=== PATIENT | female | born 1960 | race Caucasian/White ===

== ENCOUNTER → 2016-09-09 | Outpatient (CLI) | payer OTHER | LOC: MW.CHOBGYN 11:52 | PROVIDERS: ATTEND Nurse Practitioner Women's Health | DX: E03.9 Hypothyroidism, unspecified (principal) | CPT/HCPCS: 36415; 84439; 84443 ==

== ENCOUNTER 2019-06-04 13:05 | Emergency (ER) | payer OTHER ==
--- NOTE | 2019-06-04 14:05 | CR ---
Chest: Portable view of the chest was obtained. Comparison: Prior chest x-ray of 10/18/15. Heart size is normal. Tortuous thoracic aorta is seen. Sternotomy is noted. Prosthetic heart valve is noted. Lungs are clear with no acute parenchymal change. Bony structures are grossly intact. Impression: 1. Nothing acute is appreciated on frontal chest x-ray. Diagnostic code #1 Study was dictated in [place] Standard Time
[2019-06-04 14:12] LABS: BLOOD UREA NITROGEN,BUN 20 mg/dL (7.0-18.0); CARBON DIOXIDE,CO2 25.9 mmol/L (21.0-32.0); CHLORIDE,CL 104 mmol/L (98-107); GLUCOSE RANDOM 99 mg/dL (74-106); POTASSIUM,K 3.7 mmol/L (3.5-5.1); SODIUM,NA 142 mmol/L (136-145)
--- NOTE | 2019-06-04 16:08 | EDM.PDOC ---
ED [facility] GENERAL MEDICAL PROBLEM - General Chief Complaint: Chest Pain Stated Complaint: CHEST PAIN Time Seen by Provider: 06/04/19 13:35 Source of Information: Reports: Patient History Limitations: Reports: No Limitations - History of Present Illness INITIAL COMMENTS - FREE TEXT/NARRATIVE: Patient 58-year-old female with past medical history of thyroid dysfunction as well as mitral valve prolapse presenting with a chief complaint of chest pressure. Symptoms started around 1130. Patient states she first experiencing pressure in her mid scapular region of her back and then it began radiating around to the front of her chest. Patient did not have any associated shortness of breath, nausea, diaphoresis, palpitations. The symptoms not radiate anywhere else to her arm or jaw. Symptoms resolved spontaneously after 30 minutes. Patient was not exerting herself when the symptom started. Patient has not had any lower extremity swelling or calf pain. No history of DVT or PE. No recent hospitalization or recent long travel. No prior history of similar symptoms. In addition to that documented in the HPI above, the additional ROS was obtained : Constitutional: Denies fevers or chills Eyes: Denies vision changes ENMT: Denies sore throat CV: Denies chest pain Resp: Denies SOB GI: Denies vomiting or diarrhea : Denies painful urination MSK: Denies recent trauma Skin: Denies new rashes Neuro: Denies new numbness or tingling or weakness Endocrine: Denies unexpected weight loss Heme: Denies bleeding disorders I have reviewed the triage vital signs Const: Well nourished, well developed, appears stated age Eyes: PERRL, no conjunctival injection HENT: NCAT, Neck supple without meningismus CV: RRR, Warm, well-perfused extremities RESP: CTAB, Unlabored respiratory effort GI: soft, non-tender, non-distended, no masses MSK: No gross deformities appreciated Skin: Warm, dry. No rashes Neuro: Alert, gold leaf printer II-XII grossly intact. Sensation and motor function of extremities grossly intact. Psych: Appropriate mood and affect Assessmant and plan 58-year-old female presenting with chief complaint of chest discomfort which is resolved prior to arrival in the emergency department. Patient had serial EKG and troponin done which are both within normal limits. Patient has no evidence of PE and has no high risk features for pulmonary embolism. Patient's heart score is a 2 and patient will be discharged home with outpatient follow-up. Patient given strict return precautions all questions addressed and answered. Patient agrees with plan - Related Data Allergies Allergy/AdvReac Type Severity Reaction Status Date / Time Penicillins Allergy Hives Verified 06/04/19 13:19 Home Meds: Home Meds Amitriptyline [Elavil] 30 mg PO BEDTIME 07/19/14 [History] [place]/Cell/Lipas/Malt/Prt/Lac/in [Digestive Enzymes] 1 tab PO DAILY 07/19/14 [ History] Calcium Carbonate [Tums] 1 tab CHEW ASDIRECTED PRN 07/19/14 [History] Clindamycin HCl [Cleocin HCl] 1 tab PO ASDIRECTED PRN 07/19/14 [History] Cyanocobalamin (Vitamin B12) [Vitamin B12] 1 tab PO DAILY 07/19/14 [History] Fish Oil/Borage/Flax/Om3,6,9 1 [[place] 3-6-9 Complex Softgel] 1 tab PO DAILY 07/31 [History] Glucosam/Chond/Collagen/Hyalur [Glucosamine Chondroitin] 1 tab PO DAILY [History] Multivitamin [Multivitamins] 1 tab PO DAILY 07/19/14 [History] Past Medical History Cardiovascular History: Reports: Heart Valve Replacement - Infectious Disease History Infectious Disease History: Reports: Chicken Pox, Mumps Social & Family History - Tobacco Use Smoking Status *Q: Never Smoker Second Hand Smoke Exposure: No - Caffeine Use Caffeine Use: Reports: None - Recreational Drug Use Recreational Drug Use: No ED ROS GENERAL - Review of Systems Review Of Systems: See Below ED EXAM, GENERAL - Physical Exam Exam: See Below Course - Vital Signs Last Recorded V/S: Last Vital Signs Temp 36.1 C 06/04/19 13:21 Pulse 79 06/04/19 14:42 Resp 16 06/04/19 14:42 BP 113/70 06/04/19 14:42 Pulse Ox 97 06/04/19 14:42 - Orders/Labs/Meds Orders: Active Orders 24 hr Category Date Time Status EKG 12 Lead [EKG Documentation Completion] [RC] STAT Care 06/04/19 15:05 Active EKG Documentation Completion [RC] STAT Care 06/04/19 13:11 Active Labs: Laboratory Tests 06/04/19 06/04/19 06/04/19 Range/Units 13:19 13:19 15:16 WBC 6.46 (4.0-11.0) K/uL RBC 4.26 L (4.30-5.90) M/uL Hgb 13.1 (12.0-16.0) g/dL Hct 39.2 (36.0-46.0) % MCV 92.0 (80.0-98.0) fL MCH 30.8 (27.0-32.0) pg MCHC 33.4 (31.0-37.0) g/dL RDW Std Deviation 43.7 (28.0-62.0) fl RDW Coeff of Christine 13 (11.0-15.0) % Plt Count 225 (150-400) K/uL MPV 9.90 (7.40-12.00) fL Neut % (Auto) 65.1 (48.0-80.0) % Lymph % (Auto) 26.9 (16.0-40.0) % [place] % (Auto) 6.2 (0.0-15.0) % Eos % (Auto) 0.9 (0.0-7.0) % Baso % (Auto) 0.9 (0.0-1.5) % Neut # (Auto) 4.2 (1.4-5.7) K/uL Lymph # (Auto) 1.7 (0.6-2.4) K/uL [place] # (Auto) 0.4 (0.0-0.8) K/uL Eos # (Auto) 0.1 (0.0-0.7) K/uL Baso # (Auto) 0.1 (0.0-0.1) K/uL Nucleated RBC % 0.0 /100WBC Nucleated RBCs # 0 K/uL Sodium 142 (136-145) mmol/L Potassium 3.7 (3.5-5.1) mmol/L Chloride 104 (98-107) mmol/L Carbon Dioxide 25.9 (21.0-32.0) mmol/L BUN 20 H (7.0-18.0) mg/dL Creatinine 0.9 (0.6-1.0) mg/dL Est Cr Clr Drug Dosing 64.56 mL/min Estimated GFR (MDRD) > 60.0 ml/min Glucose 99 (74-106) mg/dL Calcium 9.5 (8.5-10.1) mg/dL Total Bilirubin 0.3 (0.2-1.0) mg/dL AST 20 (15-37) IU/L ALT 26 (14-63) IU/L Alkaline Phosphatase 54 (46-116) U/L Troponin I < 0.050 < 0.050 (0.000-0.056) ng/mL Total Protein 7.7 (6.4-8.2) g/dL Albumin 4.2 (3.4-5.0) g/dL Globulin 3.5 (2.6-4.0) g/dL Albumin/Globulin Ratio 1.2 (0.9-1.6) Departure - Departure Time of Disposition: 16:08 Disposition: Home, Self-Care 01 Clinical Impression: Atypical chest pain Instructions: Nonspecific Chest Pain, [id number] Referrals: Carla Oh MD [Primary Care Provider] - Forms: ED Department Discharge Additional Instructions: Simeon the following information is given to patients seen in the emergency department who are being discharged to home. This information is to outline your options for follow-up care. We provide all patients seen in our emergency department with a follow-up referral. The need for follow-up, as well as the timing and circumstances, are variable depending upon the specifics of your emergency department visit. If you don't have a primary care physician on staff, we will provide you with a referral. We always advise you to contact your personal physician following an emergency department visit to inform them of the circumstance of the visit and for follow-up with them and/or the need for any referrals to a consulting specialist. The emergency department will also refer you to a specialist when appropriate. This referral assures that you have the opportunity for follow-up care with a specialist. All of these measure are taken in an effort to provide you with optimal care, which includes your follow-up. Under all circumstances we always encourage you to contact your private physician who remains a resource for coordinating your care. When calling for follow-up care, please make the office aware that this follow-up is from your recent emergency room visit. If for any reason you are refused follow-up, please contact the [facility] Emergency Department at and asked to speak to the emergency department charge nurse. Sepsis Event Note - Evaluation Sepsis Screening Result: No Definite Risk - Focused Exam Vital Signs: Vital Signs Temp Pulse Resp BP Pulse Ox 06/04/19 14:42 79 16 113/70 97 06/04/19 13:21 36.1 C 89 16 128/78 99 Date Exam was Performed: 06/04/19 Time Exam was Performed: 16:05 - My Orders Last 24 Hours: My Active Orders 06/04/19 13:11 EKG Documentation Completion [RC] STAT 06/04/19 15:05 EKG 12 Lead [EKG Documentation Completion] [RC] STAT - Assessment/Plan Last 24 Hours: My Active Orders 06/04/19 13:11 EKG Documentation Completion [RC] STAT 06/04/19 15:05 EKG 12 Lead [EKG Documentation Completion] [RC] STAT
[2019-06-04 19:48] VITALS: BP 112/75; PULSE 71
== END 2019-06-04 16:57 | disposition home or self-care (01) ==
LOC: MW.ED 13:05
DX: R07.89 Other chest pain (principal); Z88.0 Allergy status to penicillin
CPT/HCPCS: 36415; 71045; 71045-26; 80053; 84484; 85025; 93005; 99283; 99285-25

== ENCOUNTER 2019-06-04 18:47 | Emergency (ER) | payer OTHER ==
--- NOTE | 2019-06-04 19:45 | EDM.PDOC ---
ED [facility] GENERAL MEDICAL PROBLEM - General Chief Complaint: Cardiovascular Problem Stated Complaint: RAPID HEARTBEAT Time Seen by Provider: 06/04/19 19:05 Source of Information: Reports: Patient - History of Present Illness INITIAL COMMENTS - FREE TEXT/NARRATIVE: The patient is a 58-year-old female with a history of a mitral valve replacement who presents to the ER for chest pressure and mainly palpitations. The patient was just seen at this facility and discharged about an hour ago for chest pain. She was considered a low risk with a heart score of 2. The patient states that she got home when she looked at her apple watch and notes that her heart rate was 145. She states that her heart was racing. She had a little bit of pain but mostly it was just palpitations. No syncope or near syncope, no fevers or chills, no coughing, no hemoptysis, no other acute complaints. - Related Data Allergies Allergy/AdvReac Type Severity Reaction Status Date / Time Penicillins Allergy Hives Verified 06/04/19 18:53 Home Meds: Home Meds Amitriptyline [Elavil] 30 mg PO BEDTIME 07/19/14 [History] Lyndsay/Cell/Lipas/Malt/Prt/Lac/in [Digestive Enzymes] 1 tab PO DAILY 07/19/14 [ History] Calcium Carbonate [Tums] 1 tab CHEW ASDIRECTED PRN 07/19/14 [History] Clindamycin HCl [Cleocin HCl] 1 tab PO ASDIRECTED PRN 07/19/14 [History] Cyanocobalamin (Vitamin B12) [Vitamin B12] 1 tab PO DAILY 07/19/14 [History] Fish Oil/Borage/Flax/Om3,6,9 1 [[place] 3-6-9 Complex Softgel] 1 tab PO DAILY 07/31 [History] Glucosam/Chond/Collagen/Hyalur [Glucosamine Chondroitin] 1 tab PO DAILY [History] Multivitamin [Multivitamins] 1 tab PO DAILY 07/19/14 [History] Past Medical History Cardiovascular History: Reports: Heart Valve Replacement - Infectious Disease History Infectious Disease History: Reports: Chicken Pox Social & Family History - Family History Family Medical History: Noncontributory - Tobacco Use Smoking Status *Q: Never Smoker Second Hand Smoke Exposure: No - Caffeine Use Caffeine Use: Reports: Coffee - Recreational Drug Use Recreational Drug Use: No ED ROS GENERAL - Review of Systems Review Of Systems: See Below Free Text/Narrative/Comment: Positive for transient chest pressure, positive for palpitations, negative for fevers, negative chills, negative hemoptysis, negative for syncope, negative for near syncope, all other Positives and pertinent negatives as per HPI. All other pertinent systems were reviewed and are negative ED EXAM, GENERAL - Physical Exam Exam: See Below Free Text/Narrative:: Constitutional: No acute distress, Non-toxic appearance HEENT.: Normocephalic, PERRL, EOMI, External ears are atraumatic, nares are patent without epistaxis Neck: Normal range of motion, Trachea Midline, No stridor Respiratory.: No respiratory distress, No tachypnea, Lungs Clear to Auscultation bilaterally without wheezes, rales, or rhonchi Cardiovascular.: Regular rate and Rhythm without murmurs, rubs, or gallops, good peripheral perfusion GI: Deferred Genital Urinary: Deferred Musculoskeletal: Good range of motion. All 4 extremities present and atraumatic , no edema Back: Full Range of Motion Skin: Warm, Dry, Color is ethnicity appropriate, No acute rash. Lymphatic: No lymphadenopathy noted Neurological: Alert, Awake and oriented x 3, No focal deficits noted appreciate , GCS 15 Psych: Affect, Judgement, mood normal Course - Vital Signs Text/Narrative:: I agree with Dr. Giordano assessment that this patient is a low risk per heart score, and I also am not concerned about other malignant cardiopulmonary pathology such as a pulmonary embolism, aortic dissection, myocarditis, endocarditis, pericardial effusion, etc. ECG The Repeat ECG was read and interpreted by me. There are p waves before every QRS with a ventricular rate of 60. The GA, QRS, and QT intervals are all normal. [place] is normal. ST segments are baseline and the T wave morphology is normal. Final interpretation is a normal Sinus rhythm and a normal ECG. During almost 2 hours of observation at her repeat visit in the ER she remained in a normal sinus rhythm with no dysrhythmias, ECG does not show any signs of Iapvl-[id number]-Vhkui, long QT syndrome, Brugada syndrome, etc. Patient is also making numerous other request such as checking her thyroid, she has leg cramps, etc. She is stable for discharge and outpatient follow-up. Last Recorded V/S: Last Vital Signs Temp 36.0 C 01/17/20 18:54 Pulse 79 06/04/19 20:22 Resp 16 06/04/19 20:22 BP 119/67 06/04/19 20:22 Pulse Ox 97 06/04/19 20:22 - Orders/Labs/Meds Orders: Active Orders 24 hr Category Date Time Status EKG Documentation Completion [RC] STAT Care 06/04/19 20:00 Active Labs: Laboratory Tests 06/04/19 Range/Units 19:08 Troponin I < 0.050 (0.000-0.056) ng/mL Departure - Departure Time of Disposition: 20:34 Disposition: Home, Self-Care 01 Clinical Impression: Palpitation Referrals: Carla Oh MD [Primary Care Provider] - Forms: ED Department Discharge Additional Instructions: Palpitations A palpitation is the feeling that your heartbeat is irregular. It may feel like your heart is fluttering or skipping a beat. It may also feel like your heart is beating faster than normal. This is usually not a serious problem, but in some cases you may need more medical tests. HOME CARE Avoid: ? Excessive caffeine in coffee, tea, soft drinks, diet pills, and energy drinks. GET HELP RIGHT AWAY IF: You have chest pain or worsening chest pain. You feel persistent shortness of breath. Your heart is racing and you pass out, it is racing and won't stop, or any other concerns The following information is given to patients seen in the emergency department who are being discharged to home. This information is to outline your options for follow-up care. We provide all patients seen in our emergency department with a follow-up referral. The need for follow-up, as well as the timing and circumstances, are variable depending upon the specifics of your emergency department visit. If you don't have a primary care physician on staff, we will provide you with a referral. We always advise you to contact your personal physician following an emergency department visit to inform them of the circumstance of the visit and for follow-up with them and/or the need for any referrals to a consulting specialist. The emergency department will also refer you to a specialist when appropriate. This referral assures that you have the opportunity for follow-up care with a specialist. All of these measure are taken in an effort to provide you with optimal care, which includes your follow-up. Under all circumstances we always encourage you to contact your private physician who remains a resource for coordinating your care. When calling for follow-up care, please make the office aware that this follow-up is from your recent emergency room visit. If for any reason you are refused follow-up, please contact the [facility] Emergency Department at and asked to speak to the emergency department charge nurse. Sepsis Event Note - Evaluation Sepsis Screening Result: No Definite Risk - Focused Exam Vital Signs: Vital Signs Temp Pulse Resp BP Pulse Ox 06/04/19 20:22 79 16 119/67 97 06/04/19 19:45 84 18 118/64 96 06/04/19 18:54 36.0 C 93 16 132/64 96 Date Exam was Performed: 06/04/19 Time Exam was Performed: 20:28 - My Orders Last 24 Hours: My Active Orders 06/04/19 20:00 EKG Documentation Completion [RC] STAT - Assessment/Plan Last 24 Hours: My Active Orders 06/04/19 20:00 EKG Documentation Completion [RC] STAT
[2019-06-04 21:00] VITALS: BP 128/76; PULSE 78
== END 2019-06-04 20:44 | disposition home or self-care (01) ==
LOC: MW.ED 18:47
DX: R00.2 Palpitations (principal); Z79.899 Other long term (current) drug therapy; Z88.0 Allergy status to penicillin
CPT/HCPCS: 36415; 84484; 93005; 99285-25

== ENCOUNTER 2020-05-27 20:58 | Emergency (ER) | payer OTHER ==
--- NOTE | 2020-05-27 21:05 | EDM.PDOC ---
ED HPI GENERAL MEDICAL PROBLEM - General Chief Complaint: ENT Problem Stated Complaint: POSSIBLE EAR INFECTION Time Seen by Provider: 05/27/20 21:01 Source of Information: Reports: Patient History Limitations: Reports: No Limitations - History of Present Illness INITIAL COMMENTS - FREE TEXT/NARRATIVE: HISTORY AND PHYSICAL: History of present illness: Patient is a 59-year-old female who presents to the emergency room with complaints of left ear pain. Patient states she has had this intermittent left dental/sinus/ear pain since around [place]. She did see her dentist due to this pain and he informed her there was no immediate concerns and to take Tylenol and ibuprofen at home. Over the past few days she has had pain that returned to the left ear and sinus area. She has been using Tylenol and ibuprofen with minimal relief. Patient denies any fever, chills, headache, change in vision, syncope or near syncope. She denies any ear drainage, pain with ocular movement, or sore throat. Denies any chest pain, back pain, shortness of breath or cough. Denies any GI or symptoms. Patient has been eating and drinking appropriately. Review of systems: As per history of present illness and below otherwise all systems reviewed and negative. Past medical history: As per history of present illness and as reviewed below otherwise noncontributory. Surgical history: As per history of present illness and as reviewed below otherwise noncontributory. Social history: See social history for further information Family history: As per history of present illness and as reviewed below otherwise noncontributory. Physical exam: General: Well developed and well nourished 59 year old female. Alert and orientated x 3. Nontoxic in appearance and in no acute distress. Vital signs are stable and have been reviewed by me. Nursing notes were reviewed. HEENT: Atraumatic, normocephalic, pupils equal and reactive bilaterally, negative for conjunctival pallor or scleral icterus, mucous membranes moist, TMs dull and pinkish bilaterally (no bulging), tenderness with palpation of the left frontal and maxillary sinus, throat clear, neck supple, no lymphadenopathy, nontender, trachea midline. No drooling or trismus noted. No meningeal signs. No hot potato voice noted. Lungs: Clear to auscultation, breath sounds equal bilaterally. Normal work of breathing, no accessory muscles used. Heart: S1S2, regular rate and rhythm without overt murmur Abdomen: Soft, nondistended, nontender. Skin: Intact, warm, dry. No lesions or rashes noted. Hematologic: No petechiae or purpra. Mucosa appropriate color and normal nail bed color and refill. Extremities: Atraumatic, moves all extremities per self without difficulty or deficits. Neurovascular unremarkable. Neuro: Awake, alert, oriented. Cranial nerves II through XII unremarkable. Cerebellum unremarkable. Motor and sensory unremarkable throughout. Exam nonfocal. Psychiatric: Mood and affect are appropriate. Normal thought process. Answering questions appropriately. Notes: I have talked with the patient about today's findings, in addition to providing specific details for plan of care. Reassessment at the time of disposition demonstrates that the patient is in no acute distress. The patient is stable for discharge, counseling was provided and we discussed in great detail signs and symptoms that would prompt them to return to the Emergency Department. Medication, follow up and supportive care measures were reviewed and discussed. Voices understanding and is agreeable to plan of care. Denies any further qu estions or concerns at this time. Diagnostics: None Therapeutics: Clindamycin, Tylenol #3 Prescription: Clindamycin, Tylenol #3 Impression: Sinusitis Plan: 1. Please take the medication as directed. 2. You can alternate Tylenol and ibuprofen as needed for pain management. Tylenol #3 for moderate to severe pain, this medication may cause drowsiness, so do not take while driving or needing to be functioning outside the house. 3. We encourage you to follow up with your primary care provider and/or recommended specialist in the next few days for re-evaluation and further care/management. 4. If your symptoms should worsen, new symptoms develop or any of the signs and symptoms we discussed should arise please return to the emergency room or call 911 (if needed). Definitive disposition and diagnosis as appropriate pending reevaluation and review of above. left ear Pain Score (Numeric/FACES): 3 - Related Data Allergies Allergy/AdvReac Type Severity Reaction Status Date / Time Penicillins Allergy Hives Verified 05/27/20 21:11 Home Meds: Home Meds Calcium Carbonate [Tums] 1 tab CHEW ASDIRECTED PRN 07/19/14 [History] Fish Oil/Borage/Flax/Om3,6,9 1 [[place] 3-6-9 Complex Softgel] 1 tab PO DAILY 07/19/14 [History] Multivitamin [Multivitamins] 1 tab PO DAILY 07/19/14 [History] clindamycin HCL [Cleocin HCl] 1 tab PO ASDIRECTED PRN 07/19/14 [History] Aspirin [Aspirin EC] 81 mg PO DAILY 05/27/20 [History] Evening [place] Oil 500 mg PO DAILY 05/27/20 [History] Thyroid,Pork [[place] Thyroid] 15 mg PO DAILY 05/27/20 [History] Past Medical History Cardiovascular History: Reports: Heart Valve Replacement - Infectious Disease History Infectious Disease History: Reports: Chicken Pox Social & Family History - Family History Family Medical History: No Pertinent Family History - Caffeine Use Caffeine Use: Reports: Coffee ED ROS ENT - Review of Systems Review Of Systems: Comprehensive ROS is negative, except as noted in HPI. ED EXAM, ENT - Physical Exam Exam: See Below (See dictation) Course - Vital Signs Last Recorded V/S: Last Vital Signs Temp 96.9 F 05/27/20 21:13 Pulse 81 05/27/20 21:13 Resp 17 05/27/20 21:13 BP 117/88 05/27/20 21:13 Pulse Ox 97 05/27/20 21:13 Departure - Departure Time of Disposition: 21:20 Disposition: Home, Self-Care 01 Clinical Impression: Sinusitis Qualifiers: Sinusitis location: maxillary Chronicity: acute Recurrence: non-recurrent Qualified Code(s): J01.00 - Acute maxillary sinusitis, unspecified - Discharge Information Instructions: Sinusitis, Adult, [id number] Referrals: Carla Oh MD [Primary Care Provider] - Forms: ED Department Discharge Additional Instructions: The following information is given to patients seen in the emergency department who are being discharged to home. This information is to outline your options for follow-up care. We provide all patients seen in our emergency department with a follow-up referral. The need for follow-up, as well as the timing and circumstances, are variable depending upon the specifics of your emergency department visit. If you don't have a primary care physician on staff, we will provide you with a referral. We always advise you to contact your personal physician following an emergency department visit to inform them of the circumstance of the visit and for follow-up with them and/or the need for any referrals to a consulting specialist. The emergency department will also refer you to a specialist when appropriate. This referral assures that you have the opportunity for follow-up care with a specialist. All of these measure are taken in an effort to provide you with optimal care, which includes your follow-up. Under all circumstances we always encourage you to contact your private physician who remains a resource for coordinating your care. When calling for follow-up care, please make the office aware that this follow-up is from your recent emergency room visit. If for any reason you are refused follow-up, please contact the [facility] Emergency Department at and asked to speak to the emergency department charge nurse. [facility] [address] [place] [id number] [facility] [address] [place] [id number] Thank you for choosing the [facility] emergency department in [place] for your medical needs today. It was a pleasure caring for you. Today you were seen in the emergency department for left sided ear/sinus pain. 1. Please take the medication as directed. 2. You can alternate Tylenol and ibuprofen as needed for pain management. Tylenol #3 for moderate to severe pain, this medication may cause drowsiness, so do not take while driving or needing to be functioning outside the house. 3. We encourage you to follow up with your primary care provider and/or recommended specialist in the next few days for re-evaluation and further care/management. 4. If your symptoms should worsen, new symptoms develop or any of the signs and symptoms we discussed should arise please return to the emergency room or call 911 (if needed). Sepsis Event Note (ED) - Focused Exam Vital Signs: Vital Signs Temp Pulse Resp BP Pulse Ox 05/27/20 21:13 96.9 F 81 17 117/88 97
[2020-05-27] MEDS: Acetaminophen/Codeine 300-30 MG Tab PO ONE (21:27)
[2020-05-27] MEDS: Clindamycin HCl 150 MG Cap PO ONE (21:27)
[2020-05-27 21:49] VITALS: BP 116/63; PULSE 82
== END 2020-05-27 21:36 | disposition home or self-care (01) ==
LOC: MW.ED 20:58
DX: J01.00 Acute maxillary sinusitis, unspecified (principal); Z88.0 Allergy status to penicillin; Z79.82 Long term (current) use of aspirin
CPT/HCPCS: 99282; A9270

== ENCOUNTER 2021-01-06 20:27 | Emergency (ER) | payer OTHER ==
[2021-01-06] MEDS ORDERED: predniSONE 10 MG Tab PO ONE (20:50)
[2021-01-06] MEDS ORDERED: Famotidine 20 MG Tab PO ONE (20:51)
--- NOTE | 2021-01-06 20:54 | EDM.PDOC ---
ED HPI GENERAL MEDICAL PROBLEM - General Chief Complaint: Allergic Reaction Stated Complaint: ALLERGIC REACTION Time Seen by Provider: 01/06/21 20:28 - History of Present Illness INITIAL COMMENTS - FREE TEXT/NARRATIVE: HISTORY AND PHYSICAL: History of present illness: This is a [age]-year-old female who presents ER today secondary to hives x1 day. Patient reports that she was bit by 2 bees approximately 2 days ago and had a lo dallin reaction however 2 days later while she was at [employer] she started experiencing itching to her scalp. Patient reports that since the itching to her scalp the rash and itching has generalized to her arms torso legs and right upper lip. Patient denies any shortness of breath or wheezing. Patient denies any swelling to her tongue or difficulty swallowing. Patient reports no change in her voice. Patient denies any new allergens that she is aware of. Patient denies any new medications, soaps, detergents, close, pets or any other allergens. Review of systems: As per history of present illness and below otherwise all systems reviewed and negative. Past medical history: As per history of present illness and as reviewed below otherwise noncontributory. Surgical history: As per history of present illness and as reviewed below otherwise noncontributory. Social history: No reported history of drug abuse. Family history: As per history of present illness and as reviewed below otherwise noncontributory. Physical exam: This patient was seen and evaluated during the 2019 SARS-CoV-2 novel coronavirus pandemic period. Community viral transmission is ongoing at time of this encounter and the emergency department is operating under pandemic response procedures. Constitutional: Patient is oriented to person, place, and time. Appears well- developed and well-nourished. No distress. HEENT: Moist mucous membranes Head: Normocephalic and atraumatic Eyes: Right eye exhibits no discharge. Left eye exhibits no discharge. No scleral icterus Neck: Normal range of motion. No tracheal deviation present. Cardiovascular: Normal rate and regular rhythm. Pulmonary: Effort normal, no respiratory distress. Abdominal: No distention Musculoskeletal: Normal range of motion Neurologic: Alert and oriented to person, place and time. Skin: [place], warm and dry. Psychiatric: Normal mood and affect. Behavior is normal. Judgment and thought content normal. Nursing note and vital signs have been reviewed Patient's ER physical exam is significant for hives throughout her body with swelling to mild to her right upper lip. There is no stridor. No wheezing. No difficulty tolerating secretions. No angioedema to her oropharynx, tongue. Patient does not appear to be in any acute distress and appears comfortable in the ED. Diagnostics: [] Therapeutics: [] Assessment and plan: 60-year-old female who presents ER today with allergic reaction of unclear etiology. I doubt that it is secondary to the bee sting as this occurred 2 days ago and this would be quite a delayed reaction. Patient has been given Benadryl IM, prednisone and Pepcid here in the ED and will be discharged with a prescription for Benadryl 50, Pepcid and prednisone. Patient was given pr ecautions return to ER if any increase swelling to her oropharynx, difficulty swallowing, swelling to her tongue or any other concerns regarding breathing. Patient was instructed to keep a diary of everything she, to contact with. Patient only to follow-up with her doctor in the next 2 to 3 days for reevaluation if her symptoms not completely resolved. Reassessment at the time of disposition demonstrates that the patient is in no acute distress. The patient has remained stable throughout the entire ED visit and is without objective evidence for acute process requiring urgent intervention or hospitalization. The patient is stable for discharge, counseling is provided as documented above, discussed symptomatic treatment and specific conditions for return. I have spoken with the patient/caregiver and discussed todays findings, in addition to providing specific details for the plan of care. Questions are answered and there is agreement with the plan. Definitive disposition and diagnosis as appropriate pending reevaluation and review of above. - Related Data Allergies Allergy/AdvReac Type Severity Reaction Status Date / Time Penicillins Allergy Hives Verified 01/06/21 20:35 Home Meds: Home Meds Calcium Carbonate [Tums] 1 tab CHEW ASDIRECTED PRN 07/19/14 [History] Fish Oil/Borage/Flax/Om3,6,9 1 [[place] 3-6-9 Complex Softgel] 1 tab PO DAILY 07/19/14 [History] Multivitamin [Multivitamins] 1 tab PO DAILY 07/19/14 [History] clindamycin HCL [Cleocin HCl] 1 tab PO ASDIRECTED PRN 07/19/14 [History] Aspirin [Aspirin EC] 81 mg PO DAILY 05/27/20 [History] Clindamycin HCl 300 mg PO TID 7 Days #21 capsule 05/27/20 [Rx] Evening [place] Oil 500 mg PO DAILY 05/27/20 [History] Thyroid,Pork [[place] Thyroid] 15 mg PO DAILY 05/27/20 [History] Famotidine [Pepcid] 20 mg PO BID #10 tab 01/06/21 [Rx] diphenhydrAMINE [Benadryl] 50 mg PO Q6HR PRN #20 cap 01/06/21 [Rx] predniSONE [Prednisone] 50 mg PO DAILY #5 tablet 01/06/21 [Rx] Past Medical History HEENT History: Reports: Other (See Below) Other HEENT History: wears glasses Cardiovascular History: Reports: Heart Valve Replacement - Infectious Disease History Infectious Disease History: Reports: Chicken Pox, Mumps Social & Family History - Family History Family Medical History: No Pertinent Family History - Tobacco Use Tobacco Use Status *Q: Never Tobacco User - Caffeine Use Caffeine Use: Reports: Coffee - Recreational Drug Use Recreational Drug Use: No ED ROS ALLERGIC REACTION - Review of Systems Review Of Systems: See Below ED EXAM GENERAL NO PERIP PULSE - Physical Exam Exam: See Below Course - Vital Signs Last Recorded V/S: Last Vital Signs Temp 99.1 F 01/06/21 20:37 Pulse 97 01/06/21 20:37 Resp 18 01/06/21 20:37 BP 98/63 01/06/21 20:37 Pulse Ox 99 01/06/21 20:37 - Orders/Labs/Meds Meds: Medications Discontinued Medications Generic Name Dose Route Start Last Admin Trade Name Freq PRN Reason Stop Dose Admin Diphenhydramine HCl 50 mg 01/06/21 20:51 01/06/21 20:58 Diphenhydramine 50 Mg/Ml Sdv IM 01/06/21 20:52 50 mg ONETIME ONE Administration Famotidine 20 mg 01/06/21 20:51 01/06/21 21:01 Famotidine 20 Mg Tab PO 01/06/21 20:52 20 mg ONETIME ONE Administration Prednisone 40 mg 01/06/21 20:50 01/06/21 21:01 Prednisone 10 Mg Tab PO 01/06/21 20:51 40 mg ONETIME ONE Administration Departure - Departure Time of Disposition: 20:52 Disposition: Home, Self-Care 01 Condition: Good Clinical Impression: Hives Allergic reaction Qualifiers: Encounter type: initial encounter Qualified Code(s): T78.40XA - Allergy, unspecified, initial encounter - Discharge Information Prescriptions: diphenhydrAMINE [Benadryl] 50 mg PO Q6HR PRN #20 cap PRN Reason: Itching Famotidine [Pepcid] 20 mg PO BID #10 tab predniSONE [Prednisone] 50 mg PO DAILY #5 tablet Instructions: Hives, Allergies, Adult, [id number] Referrals: Zahira Stokes DO [Primary Care Provider] - Forms: ED Department Discharge Additional Instructions: Your seen and evaluated in the ER today secondary to an allergic reaction of unknown etiology. Please keep a detailed diary over the last 48 hours of everything that you come into contact with. You will be given a prescription for Benadryl, prednisone, Pepcid to take over the next 3 days to assist with the reaction. Please make an appointment to follow-up with your doctor for reevaluation if your symptoms should not resolve completely. Return to the ER if you start having any worsening symptoms. The following information is given to patients seen in the emergency department who are being discharged to home. This information is to outline your options for follow-up care. We provide all patients seen in our emergency department with a follow-up referral. The need for follow-up, as well as the timing and circumstances, are variable depending upon the specifics of your emergency department visit. If you don't have a primary care physician on staff, we will provide you with a referral. We always advise you to contact your personal physician following an emergency department visit to inform them of the circumstance of the visit and for follow-up with them and/or the need for any referrals to a consulting specialist. The emergency department will also refer you to a specialist when appropriate. This referral assures that you have the opportunity for follow-up care with a specialist. All of these measure are taken in an effort to provide you with optimal care, which includes your follow-up. Under all circumstances we always encourage you to contact your private physician who remains a resource for coordinating your care. When calling for follow-up care, please make the office aware that this follow-up is from your recent emergency room visit. If for any reason you are refused follow-up, please contact the [facility] Emergency Department at and asked to speak to the emergency department charge nurse. [facility] [address] [place] [address] [id number] [address] [address] Sepsis Event Note (ED) - Evaluation Sepsis Screening Result: Possible Sepsis Risk - Focused Exam Vital Signs: Vital Signs Temp Pulse Resp BP Pulse Ox 01/06/21 20:37 99.1 F 97 18 98/63 99
[2021-01-06] MEDS: diphenhydrAMINE 50 MG/ML SDV IM ONE (20:58)
[2021-01-06 21:33] VITALS: BP 93/57; PULSE 92
[2021-01-07] MEDS: diphenhydrAMINE 50 MG/ML SDV IM ONE (20:51)
== END 2021-01-06 21:35 | disposition home or self-care (01) ==
LOC: MW.ED 20:27
DX: L50.0 Allergic urticaria (principal); Z88.0 Allergy status to penicillin; Z79.82 Long term (current) use of aspirin; Z79.899 Other long term (current) drug therapy
CPT/HCPCS: 96372; 99283; A9270; J1200

== ENCOUNTER 2021-10-23 06:38 | Day surgery (SDC) | payer OTHER ==
[~2021-10-23 06:38] MED LIST: Lactated Ringers 1,000 ML IV SCH; Sodium Chloride 0.9% 10 ML Syringe FLUSH PRN; Sodium Chloride 0.9% 2.5 ML Syringe FLUSH PRN; Sodium Chloride 0.9% 20 ML SDV IV PRN
[2021-10-23] MEDS ORDERED: propofoL 50 ML ONE (07:23)
[2021-10-23] MEDS ORDERED: ceFAZolin 1 GM Vial ONE (08:10)
[2021-10-23] MEDS ORDERED: fentaNYL 100 MCG/2 ML SDV ONE (08:36)
[2021-10-23 09:36] VITALS: BP 109/56; PULSE 72
== END 2021-10-23 09:36 | disposition home or self-care (01) ==
LOC: MW.SDS 06:38
PROVIDERS: ATTEND Surgery
DX: Z12.11 Encounter for screening for malignant neoplasm of colon (principal); E78.5 Hyperlipidemia, unspecified; K21.9 Gastro-esophageal reflux disease without esophagitis; E03.9 Hypothyroidism, unspecified; G47.00 Insomnia, unspecified; G47.33 Obstructive sleep apnea (adult) (pediatric); Z88.0 Allergy status to penicillin; Z91.030 Bee allergy status; Z79.82 Long term (current) use of aspirin; Z79.899 Other long term (current) drug therapy; Z98.890 Other specified postprocedural states; Z86.010 Personal history of colon polyps
CPT/HCPCS: 45378; J0690; J2704; J3010; J7120; 00812

== ENCOUNTER 2023-08-20 06:18 | Emergency (ER) | payer OTHER ==
[2023-08-20 06:45] LABS: BASOPHILS ABSOLUTE AUTO 0.07 K/uL (0.00-0.20); EOSINOPHILS ABSOLUTE AUTO 0.11 K/uL (0.00-0.45); EOSINOPHILS PERCENT AUTO 1.6 % (0.0-6.0); HEMATOCRIT 38.8 % (37.0-47.0); HEMOGLOBIN 13.2 g/dL (12.0-16.0); IMMATURE GRAN ABSOLUTE AUTO 0.01 K/uL (0.00-0.05); IMMATURE GRAN PERCENT AUTO 0.1 % (0.0-0.4); LYMPHOCYTES PERCENT AUTO 29.8 % (24.0-44.0); MEAN CORPUSCULAR HEMOGLOBIN 31.1 pg (28.0-32.0); MEAN CORPUSCULAR VOLUME 91.3 fL (83.0-99.0); MEAN PLATELET VOLUME 9.9 fL (9.4-12.3); MONOCYTES ABSOLUTE AUTO 0.61 K/uL (0.00-0.80); MONOCYTES PERCENT AUTO 9.1 % (0.0-8.0); NEUTROPHILS ABSOLUTE AUTO 3.91 K/uL (1.80-7.70); NEUTROPHILS PERCENT AUTO 58.4 % (41.0-71.0); PLATELET COUNT,PLT 213 K/uL (150-400); RED BLOOD CELL COUNT 4.25 M/uL (4.10-5.30); WHITE BLOOD CELL COUNT,WBC 6.71 K/uL (3.9-11.3)
[2023-08-20] MEDS: Alum Hydro/Mag Hydro/Simeth XS 15 ML, Lidocaine 2% 5 ML PO ONE (06:47)
[2023-08-20] MEDS: Ondansetron 4 MG/2 ML SDV IVPUSH ONE (06:48)
[2023-08-20] MEDS: Aspirin 81 MG Tab.Chew PO ONE (06:48)
[2023-08-20 06:54] LABS: INR 1.04 (0.86-1.11); PTT,PARTIAL THROMBOPLSTIN TIME 29.3 SEC (23.9-30.7)
[2023-08-20 07:00] LABS: A/G RATIO 1.2 (0.9-1.6); BILIRUBIN TOTAL 0.3 mg/dL (0.2-1.0); CALCIUM 9.6 mg/dL (8.5-10.1); CARBON DIOXIDE,CO2 29.8 mmol/L (21.0-32.0); EST CRCL DRUG DOSING (CG) 55.31 mL/min; POTASSIUM,K 3.8 mmol/L (3.5-5.1); PROTEIN TOTAL,TP 7.4 g/dL (6.4-8.2)
[2023-08-20 07:35] LABS: CORONAVIRUS COVID-19 NAA NEGATIVE (NEGATIVE); INFLUENZA A NAA NEGATIVE (NEGATIVE); INFLUENZA B NAA NEGATIVE (NEGATIVE)
[2023-08-20 08:04] VITALS: PULSE 71
[2023-08-20 08:50] VITALS: BP 100/62
== END 2023-08-20 09:05 | disposition home or self-care (01) ==
LOC: MW.ED 06:18
DX: R07.89 Other chest pain (principal); E03.9 Hypothyroidism, unspecified; Z91.030 Bee allergy status; Z88.0 Allergy status to penicillin; Z79.899 Other long term (current) drug therapy; Z79.82 Long term (current) use of aspirin; Z86.19 Personal history of other infectious and parasitic diseases; Z75.8 Other problems related to medical facilities and other health care
CPT/HCPCS: 0240U; 36415; 71045; 80053; 83690; 83735; 84484; 85025; 85610; 85730; 96374; 99285; A9270; J2405; 93010; 99284

== ENCOUNTER 2024-04-06 08:14 | Day surgery (SDC) | payer OTHER ==
[~2024-04-06 08:14] MED LIST changes: +Albuterol 0.083% 2.5 MG/3 ML Neb Soln NEB PRN; +HYDROmorphone 1 MG/ML Syringe IVPUSH PRN; -Lactated Ringers 1,000 ML IV SCH; +Metoclopramide 10 MG/2 ML SDV IVPUSH PRN; +Morphine 2 MG/ML SYRINGE IVPUSH PRN; +Naloxone 0.4 MG/ML SDV IVPUSH PRN; +Ondansetron 4 MG/2 ML SDV IVPUSH PRN; +Phenylephrine HCl In 0.9% NaCl 1 MG/10 ML Syringe IVPUSH PRN; +ceFAZolin 2 GM in Sodium Chloride 0.9% 50 ML IV ONE; +fentaNYL 50 MCG/ML SDV IVPUSH PRN
[2024-04-06] MEDS ORDERED: Bupivacaine 0.5% 10 ML SDV ONE (08:34)
[2024-04-06] MEDS ORDERED: Bupivacaine 0.25% 30 ML SDV ONE (08:34)
[2024-04-06] MEDS ORDERED: Propofol 200 MG/20 ML SDV ONE (08:41)
[2024-04-06] MEDS ORDERED: fentaNYL 100 MCG/2 ML SDV ONE (08:41)
[2024-04-06] MEDS: Scopalamine 1mg/3day Transdermal Patch TOP ONE (08:45)
[2024-04-06] MEDS ORDERED: dexmedeTOMIDine HCl 200 MCG/2 ML SDV ONE (08:48)
[2024-04-06] MEDS: Lactated Ringers 1,000 ML IV SCH (08:54)
[2024-04-06] MEDS ORDERED: Bupivacaine 0.5% 30 ML SDV ONE (09:23)
[2024-04-06] MEDS ORDERED: Famotidine 20 MG/2 ML SDV ONE (09:41)
[2024-04-06] MEDS ORDERED: ceFAZolin 2 GM Vial ONE (09:57)
[2024-04-06] MEDS ORDERED: Dexamethasone 4 MG/ML 5 ML MDV ONE (10:00)
[2024-04-06] MEDS ORDERED: Ondansetron 4 MG/2 ML SDV ONE (10:00)
[2024-04-06] MEDS ORDERED: ePHEDrine 50 MG/ML SDV ONE (10:02)
[2024-04-06 12:37] VITALS: BP 105/55; PULSE 68
== END 2024-04-06 12:25 | disposition home or self-care (01) ==
LOC: MW.SDS 08:14
PROVIDERS: ATTEND Surgery
DX: K40.90 Unilateral inguinal hernia, without obstruction or gangrene, not specified as recurrent (principal); K21.9 Gastro-esophageal reflux disease without esophagitis; G47.33 Obstructive sleep apnea (adult) (pediatric); E03.9 Hypothyroidism, unspecified; Z88.0 Allergy status to penicillin; Z88.2 Allergy status to sulfonamides; Z91.030 Bee allergy status; Z79.01 Long term (current) use of anticoagulants; Z79.899 Other long term (current) drug therapy; Z79.890 Hormone replacement therapy
CPT/HCPCS: 49505; A9270; J0665; J0690; J1100; J2405; J2704; J3010; J3490; J7120; C1781